=== PATIENT | male | born 1945 | race Caucasian/White ===

== ENCOUNTER 2018-05-05 12:08 | Inpatient (IN) | payer OTHER ==
[~2018-05-05] VITALS: Ht 175.3 cm; Wt 85.1 kg
[~2018-05-05 12:08] MED LIST: ACE3T; AMIT100T2; CLOP75TA28; DONE10TA12; GABA-339; GEMF600T3; INSLANTI; LISI40TA; NOVALOG
[2018-05-05] MEDS ORDERED: SODIUM CHLORIDE 0.9% 500 ML IV ONE (12:19)
[2018-05-05 12:46] LABS: Basophils # (auto) 0.1 uL; Basophils % (auto) 0.4 % (0.0-2.0); Eosinophils # (auto) 0 uL; Eosinophils % (auto) 0.1 % (0.0-7.0); Hematocrit 38.9 % (41.0-53.0); Hemoglobin 12.8 g/dL (13.5-17.5); Lymphocytes # (auto) 0.4 uL; Lymphocytes % (auto) 3.3 % (10.0-50.0); Monocytes % (auto) 7.7 % (0.0-12.0); Neutrophils # (auto) 11.6 uL; Neutrophils % (auto) 88.5 % (37.0-80.0); Platelet Count (auto) 170 10^3/uL (140-450); Red Blood Cells 4.42 10^6/uL (4.5-5.90); Red Cell Distribution Width 14.4 % (11.8-14.3); White Blood Cell 13.1 10^3/uL (4.4-10.8)
[2018-05-05 13:19] LABS: Alanine Aminotransferase 17 U/L (16-61); Albumin 2.6 g/dL (3.4-5.0); Alkaline Phosphatase 81 U/L (45-117); Anion Gap 14 (5-15); Aspartate Aminotransferase 18 U/L (15-37); BUN/Creatinine Ratio 17.4; Bilirubin, Total 0.5 mg/dL (0.2-1.0); Blood Urea Nitrogen 30 mg/dL (7-18); Calcium 7.8 mg/dL (8.5-10.1); Carbon Dioxide 13 mmol/L (21-32); Chloride 111 mmol/L (98-107); GFR African American 50 mL/min; GFR Non-African American 42 mL/min; Glucose 154 mg/dL (74-106); Magnesium 2.1 mg/dL (1.6-2.6); Potassium 3.9 mmol/L (3.5-5.1); Sodium 138 mmol/L (136-145); Total Protein 7.6 g/dL (6.4-8.2)
[2018-05-05] MEDS ORDERED: MORPHINE SULFATE 8mg/ml INJ SDV IV PRN (14:15)
[2018-05-05] MEDS ORDERED: DEXTROSE (50%) 50ML SYRG IV PRN (14:15)
[2018-05-05] MEDS ORDERED: ONDANSETRON HCL 4 MG/2 ML VIAL IV PRN (14:15)
[2018-05-05] MEDS ORDERED: PANTOPRAZOLE 40 MG/10 ML VIAL IV ONE (14:15)
[2018-05-05] MEDS ORDERED: NITROGLYCERIN 0.4 MG SL TAB SL PRN (14:15)
[2018-05-05] MEDS ORDERED: VANCOMYCIN PER PHARMACY 0 MG IV SCH (14:15)
[2018-05-05] MEDS ORDERED: MORPHINE SULF(PF) 0.5MG/ML 10ML VIAL IV PRN (14:15)
[2018-05-05] MEDS: SODIUM CHLORIDE 0.9% 1,000 ML IV SCH (14:36)
[2018-05-05] MEDS: PIPERACILLIN-TAZOB 2.25GM 50 ML IV SCH ×2 (15:44→20:34)
[2018-05-05] MEDS: InsuLIN REG 1unit/0.01ml Soln (100units/ml) SC SCH ×2 (17:00→22:06)
[2018-05-05 18:00] VITALS: BP 131/70
[2018-05-05] MEDS ORDERED: VANCOMYCIN 1GM/250ML 250 ML IV SCH (18:00)
[2018-05-05] MEDS: ACCU-CHEK COMFORT CURVE STRIP VI SCH ×2 (18:27→21:45)
[2018-05-05] MEDS: IPRATROPIUM BROM 0.5 MG/2.5ML INH SOL NEB SCH ×2 (18:55→23:05)
[2018-05-05] MEDS: ALBUTEROL SULF 2.5 MG/0.5ML(0.5%) NEB SOLN NEB SCH ×2 (18:55→23:05)
[2018-05-05 21:07] VITALS: BP 131/70
[2018-05-05] MEDS: GABAPENTIN 300 MG CAP PO SCH (21:45)
[2018-05-05] MEDS: ATORVASTATIN 20 MG TAB PO SCH (21:45)
[2018-05-05 22:00] VITALS: BP 113/54
[2018-05-05 23:57] LABS: Urine Bacteria NONE SEEN /hpf (None Seen); Urine Blood 2+ /uL (Negative); Urine Hyaline Cast MOD /lpf (0 - 2); Urine Mucus FEW (None Seen); Urine Specific Gravity 1.018 (1.001-1.035); Urine WBC 1 /hpf (0 - 3)
[2018-05-06] MEDS: guaiFENesin-DM 100/10mg/5ml SYR PO PRN ×3 (00:18→22:58)
[2018-05-06] MEDS: LORazepam 0.5 MG TAB PO PRN ×2 (00:18→08:18)
[2018-05-06] MEDS: PIPERACILLIN-TAZOB 2.25GM 50 ML IV SCH ×4 (02:30→20:33)
[2018-05-06] MEDS: SODIUM CHLORIDE 0.9% 1,000 ML IV SCH ×2 (03:25→18:06)
[2018-05-06 05:00] VITALS: BP 118/58
[2018-05-06] MEDS: GABAPENTIN 300 MG CAP PO SCH ×3 (06:07→21:49)
[2018-05-06] MEDS: InsuLIN REG 1unit/0.01ml Soln (100units/ml) SC SCH ×4 (06:21→22:13)
[2018-05-06] MEDS: ACCU-CHEK COMFORT CURVE STRIP VI SCH ×4 (06:21→21:49)
[2018-05-06] MEDS: ALBUTEROL SULF 2.5 MG/0.5ML(0.5%) NEB SOLN NEB SCH ×4 (06:31→19:17)
[2018-05-06] MEDS: IPRATROPIUM BROM 0.5 MG/2.5ML INH SOL NEB SCH ×4 (06:31→19:17)
[2018-05-06 07:19] LABS: Basophils # (auto) 0.1 uL; Basophils % (auto) 0.4 % (0.0-2.0); Eosinophils # (auto) 0 uL; Hematocrit 34.8 % (41.0-53.0); Hemoglobin 11.6 g/dL (13.5-17.5); Lymphocytes # (auto) 0.8 uL; Lymphocytes % (auto) 6.7 % (10.0-50.0); Mean Corpuscular Hemoglobin 29.3 pg (28.0-32.0); Mean Corpuscular Hgb Conc. 33.3 g/dL (32.0-36.0); Mean Corpuscular Volume 87.9 fL (80.0-100.0); Monocytes # (auto) 0.6 uL; Monocytes % (auto) 5.2 % (0.0-12.0); Neutrophils # (auto) 10.3 uL; Neutrophils % (auto) 87.7 % (37.0-80.0); Platelet Count (auto) 175 10^3/uL (140-450); Red Blood Cells 3.96 10^6/uL (4.5-5.90); Red Cell Distribution Width 14.3 % (11.8-14.3); White Blood Cell 11.8 10^3/uL (4.4-10.8)
[2018-05-06 07:22] LABS: Calcium 7.7 mg/dL (8.5-10.1); INR 1.13 (0.9-1.15); Potassium 4.4 mmol/L (3.5-5.1)
[2018-05-06 07:30] LABS: BUN/Creatinine Ratio 17.5
[2018-05-06 07:35] VITALS: BP 155/67
[2018-05-06] MEDS: HYDROcodone-ACET 5/325MG TAB PO PRN ×2 (08:23→22:14)
[2018-05-06] MEDS ORDERED: PANTOPRAZOLE 40 MG/10 ML VIAL IV SCH (10:00)
[2018-05-06] MEDS ORDERED: CLOPIDOGREL BISULFATE 75 MG TAB PO SCH (10:00)
[2018-05-06] MEDS ORDERED: ASPirin 81 mg TAB PO SCH (10:00)
[2018-05-06 12:52] VITALS: BP 130/60
[2018-05-06 17:04] VITALS: BP 127/65
[2018-05-06] MEDS ORDERED: VANCOMYCIN 1GM/250ML 250 ML IV SCH (18:00)
[2018-05-06] MEDS: ATORVASTATIN 20 MG TAB PO SCH (21:49)
[2018-05-06 22:00] VITALS: BP 124/64
== END 2018-05-07 03:23 | disposition short-term general hospital (02) | DRG 638 ==
LOC: EDBD 12:08 → ER 12:08 → TELE 12:09 → TELE-WESTW 17:50
PROVIDERS: ADMIT Internal Medicine; ATTEND Internal Medicine Geriatric Medicine
DX: E11.69 Type 2 diabetes mellitus with other specified complication (principal); E44.0 Moderate protein-calorie malnutrition; M86.8X7 Other osteomyelitis, ankle and foot; E11.621 Type 2 diabetes mellitus with foot ulcer; E11.51 Type 2 diabetes mellitus with diabetic peripheral angiopathy without gangrene; E11.65 Type 2 diabetes mellitus with hyperglycemia; J44.9 Chronic obstructive pulmonary disease, unspecified; E11.22 Type 2 diabetes mellitus with diabetic chronic kidney disease; E11.40 Type 2 diabetes mellitus with diabetic neuropathy, unspecified; F17.210 Nicotine dependence, cigarettes, uncomplicated; I12.9 Hypertensive chronic kidney disease with stage 1 through stage 4 chronic kidney disease, or unspecified chronic kidney disease; I67.2 Cerebral atherosclerosis; I70.209 Unspecified atherosclerosis of native arteries of extremities, unspecified extremity; L97.519 Non-pressure chronic ulcer of other part of right foot with unspecified severity; N18.9 Chronic kidney disease, unspecified; F32.9 Major depressive disorder, single episode, unspecified; M10.9 Gout, unspecified; M19.90 Unspecified osteoarthritis, unspecified site; Z83.3 Family history of diabetes mellitus; Z87.11 Personal history of peptic ulcer disease; Z89.512 Acquired absence of left leg below knee; Z86.73 Personal history of transient ischemic attack (TIA), and cerebral infarction without residual deficits; Z88.8 Allergy status to other drugs, medicaments and biological substances; Z88.7 Allergy status to serum and vaccine; Z79.899 Other long term (current) drug therapy; Z79.4 Long term (current) use of insulin; Z68.27 Body mass index [BMI] 27.0-27.9, adult
CPT/HCPCS: 36415; 70450; 73620; 80048; 80053; 81001; 82962; 83036; 83735; 84484; 85025; 85610; 85652; 85730; 87040; 87077; 87186; 87205; 93005; 93306; 93926; 94640; 94761; 96361; 96365; 96375; C9113; J1815; J2543